=== PATIENT | male | born 1955 | race Caucasian/White ===

== ENCOUNTER 2020-01-27 22:36 | Outpatient (REF) | payer SELFPAY ==
[2020-01-28 07:04] LABS: Absolute Basophil Count 0.03 k/cumm (0.0-0.2); Absolute Eosinophil Count 0.17 k/cumm (0.0-0.7); Absolute Lymphocyte Count 2.81 k/cumm (1.2-3.4); Absolute Monocyte Count 0.53 k/cumm (0.11-0.7); Absolute Neutrophil Count 3.56 k/cumm (1.2-6.7); Basophils % 0.4; Eosinophils % 2.4; HCT 41.5 % (40.0-50.0); Lymphocytes % 39.6; Mean Corp. HGB Concentration 33.7 g/dL (32.0-36.0); Mean Corpuscular Hemoglobin 29.4 pg (27.0-33.0); Mean Corpuscular Volume 87.2 fL (80-95); Mean Platelet Volume 11.4 fL (8.0-11.0); Monocytes % 7.5; Neutrophils % 50.1; Platelet Count 194 x1000/uL (130-400); RBC 4.76 m/cumm (4.50-6.00); RBC Distribution Width 14.4 % (11.8-14.1)
[2020-01-28 07:28] LABS: Iron 123 ug/dL (65-175); Total Iron Binding Capacity 334 ug/dL (250-450); Transferrin Sat 37 % (20-55)
[2020-01-28 07:54] LABS: ALT 110 U/L (16-63); AST 90 U/L (15-37); Albumin 3.5 g/dL (3.4-5.0); Alkaline Phosphatase 127 U/L (46-116); Anion Gap 5.3 mmol/L (3-11); BUN 19 mg/dL (7-18); Bilirubin, Total 0.5 mg/dL (0.2-1.0); CO2 27.7 mmol/L (21.0-32.0); CREATININE 1.01 mg/dL (0.70-1.30); Calcium 9.1 mg/dL (8.5-10.1); Chloride 102 mmol/L (98-107); Ferritin 124 ng/mL (26-388); Glucose 103 mg/dL (74-106); Potassium 4.5 mmol/L (3.5-5.1); Sodium 135 mmol/L (136-145); TSH (W/Ref FT4) 2.94 uIU/mL (0.36-3.74); Vitamin B12 362 pg/mL (193-986)
[2020-01-28 14:31] LABS: Hemoglobin A1C 5.3 % (3.8-5.6)
== END 2020-01-27 22:56 ==
LOC: NCHCN 22:36
PROVIDERS: Visit Provider Nurse Practitioner Community Health
DX: B19.20 Unspecified viral hepatitis C without hepatic coma (principal); K62.5 Hemorrhage of anus and rectum; R63.4 Abnormal weight loss; R25.2 Cramp and spasm
CPT/HCPCS: 80053; 82607; 82728; 83036; 83540; 83550; 84443; 85025

== ENCOUNTER 2021-12-05 13:34 | Emergency (ER) | payer SELFPAY ==
--- NOTE | 2021-12-05 13:44 | ED.GENADUL_ITS ---
Discharge Plan Disposition Patient Disposition: HOME Condition: Stable Discharge Details Clinical Impression: Elevated blood pressure reading, Arthralgia Primary Care Provider: Unknown,Unknown ED Provider: Shaye Wilder Home Meds and New Rx's Prescriptions: New lisinopril 5 mg tablet 5 mg PO DAILY Qty: 30 0RF doxycycline hyclate 100 mg tablet 100 mg PO BID Qty: 48 0RF Discharge Instructions Additional Instructions: Please follow-up with your rehab care assistant establish care for PCP, talk to them about your concerns regarding Medicare I recommend you start the blood pressure medication, your blood pressure is really high and I recommend having it rechecked to the midline knee I have written you a prescription for doxycycline, your lab test have not returned, we will let you know regarding the results if they are positive Should you develop pain, shortness of breath, or any new or worsening complaints, my recommendation is that you present to the emergency room for reassessment Discharge Data Discharge Date/Time-TO BE ENTERED AT DEPARTURE: 12/05/21 16:27 Medical Decision Making Patient EKG and diagnostic labs do not show evidence of acute abnormality Patient is afebrile and nontoxic He is significantly hypertensive, this was checked on several episodes during patient's visit, patient did not have any evidence of hypertensive emergency and I do not believe it would benefit patient to give IV antihypertensives time, in fact I think the risk would outweigh the benefit -Care management list Troponin is negative, no evidence of hypertensive emergency, but patient will benefit from oral antihypertensive given significant hypertension with history and family and significant elevation in the emergency department I see no need for emergent intervention Care management referral for follow-up Lyme titer is pending, placed on 21-day course of dog cyclin given tick bite and Lyme's presenting symptoms, discussed risk benefit patient with a yogurt daily while on this medication He is aware that he needs very close outpatient follow-up and that he is at risk for stroke and other more ominous pathology HPI General Date/Time Provider Initiated Documentation: 12/05/21 13:44 . HPI Narrative: 66-year-old gentleman with history of hepatitis C presents with report of bilateral jaw pain for the past 3 weeks. Patient feels as though this is related to his chronic Lyme. He states he had a symptom numerous times in the past. He denies any chest pain or shortness of breath. He states his symptoms are exacerbated with chewing. He is very agitated regarding his care and feels as though people are not willing to assess him for his Lyme disease. Related Data Home Medications Medication Instructions Recorded Confirmed doxycycline hyclate 100 mg tablet 100 mg PO BID #48 tab 12/05/21 lisinopril 5 mg tablet 5 mg PO DAILY #30 tab 12/05/21 Previous Rx's Medication Instructions Recorded doxycycline hyclate 100 mg tablet 100 mg PO BID #48 tab 12/05/21 lisinopril 5 mg tablet 5 mg PO DAILY #30 tab 12/05/21 Allergies Allergy/AdvReac Type Severity Reaction Status Date / Time No Known Allergies Allergy Unverified 12/05/21 14:13 Review of Systems All systems reviewed & are unremarkable except as noted in HPI and below PFSH All Active Problems (Updated 12/05/21 @ 16:06 by NITA Gates) Elevated blood pressure reading (Acute) Arthralgia (Acute) Social History Smoking/Tobacco Use Status: Former Tobacco Use Smoking risk assessment performed?: Yes Alcohol Intake: never Drug use: Daily Substance use type: marijuana Do you feel safe at home: Yes Do you feel safe in your relationship?: Yes Exam Const General: cooperative, comfortable and no acute distress HENMT Other: mild jaw tenderness noted , uvula midline No trismus, no evidence of intraoral pathology Eyes Pupils: PERRL Neck Other: no carotid bruit Resp Effort & Inspection: normal respiratory effort Auscultation: clear to auscultation bilaterally Cardio Rate: regular rate Rhythm: regular rhythm Other: No murmur GI Inspection: normal to inspection Skin General skin exam: no rashes or lesions noted Neuro General: patient alert and patient oriented x3
[2021-12-05 13:50] VITALS: BP 200/120; PULSE 85; RESP 16; TEMP 37; O2SAT 97
--- NOTE | 2021-12-05 14:00 | RT.EKG_ITS ---
APPROVED REPORT Exam: Resting ECG Reason for Exam: chest pain Patient Location: E HR:94 bpm ECG Measurements Heart Rate 94 AXIS ND 174 P 65 QRSd 97 QRS 24 QT 366 T 41 QTc 458 Conclusion Sinus rhythm...normal P axis, V-rate 60- 99 Probable left atrial enlargement...P >50mS, <-0.10mV V1
--- NOTE | 2021-12-05 14:15 | DI.RAD_ITS ---
Exam(s) XR PORTABLE CHEST AP EXAM: XR PORTABLE CHEST AP CLINICAL HISTORY: jaw pain TECHNIQUE: 2D digital imaging was performed of the chest. One image was obtained. An AP view was ob tained. COMPARISON: No exams were available for comparison FINDINGS: MEDIASTINUM: Normal. HEART: Normal. PULMONARY VASCULATURE: Normal. LUNGS: Clear. PLEURAL SPACE: No pleural effusion or pneumothorax. BONE:Within normal limits for the patient's age. OTHER FINDINGS:Normal. IMPRESSION: No acute pulmonary findings. DATA REPOSITORY: RADIATION DOSE DELIVERED:
[2021-12-05 14:42] LABS: Abs Immature Grans 0.01 10^3/uL (0.0-0.06); Absolute Basophil Count 0.09 10^3/uL (0.0-0.2); Absolute Eosinophil Count 0.21 10^3/uL (0.0-0.7); Absolute Lymphocyte Count 4.61 10^3/uL (1.2-3.4); Absolute Monocyte Count 0.71 10^3/uL (0.1-0.8); Basophils % 0.9; Eosinophils % 2.2; HGB 15.2 g/dL (13.5-17.5); Immature Grans % 0.1; Lymphocytes % 47.9; MCH 27.8 pg (27.0-33.0); MCV 84.2 fL (80-95); MPV 9.7 fL (8.0-11.0); Monocytes % 7.4; Neutrophils % 41.5; Nucleated RBC 0 %; Platelet Count 212 10^3/uL (130-400); RBC 5.46 10^6/uL (4.36-5.78); RDW 13.2 % (11.8-14.1); WBC 9.63 10^3/uL (4.4-10.8)
[2021-12-05 14:49] LABS: ALT 27 U/L (16-63); AST 22 U/L (15-37); Albumin 4.6 g/dL (3.4-5.0); Alkaline Phosphatase 96 U/L (46-116); Anion Gap 9.6 mmol/L (3-11); BUN 15 mg/dL (7-18); Bilirubin, Total 0.6 mg/dL (0.2-1.0); CO2 26.4 mmol/L (21.0-32.0); CREATININE 1.1 mg/dL (0.70-1.30); Calcium 9.4 mg/dL (8.5-10.1); Chloride 101 mmol/L (98-107); Glucose 95 mg/dL (74-106); Magnesium 2.1 mg/dL (1.8-2.4); Potassium 3.6 mmol/L (3.5-5.1); Sodium 137 mmol/L (136-145); Total Protein 9.1 g/dL (6.4-8.2); Troponin I < 50 ng/L (<or=60)
--- NOTE | 2021-12-05 15:27 | NUR.NOTE ---
Nursing Note: Pt took off monitoring equipment but did allow this com writer to check BP, 205/127, pt states I dont have BP problems, it is the lyme disease, provider aware.
--- NOTE | 2021-12-05 15:36 | NUR.NOTE ---
Nursing Note: Referral given to Care Management to establish care/chronic lyme, routine follow up with new PCP. Barbara Sandra
[2021-12-06 11:56] LABS: Lyme Ab w Rflx to Lyme Confirm Positive (Negative)
[2021-12-07 07:51] LABS: Lyme IgG Ab Negative (Negative); Lyme IgM Ab Negative (Negative)
[2021-12-08 19:06] LABS: Anaplasma phagocytophilum Negative (Negative); B. miyamotoi PCR Negative (Negative); Babesia divergens/MO-1 Negative (Negative); Babesia duncani Negative (Negative); Babesia microti Negative (Negative); Ehrlichia chaffeensis Negative (Negative); Ehrlichia ewingii/canis Negative (Negative); Ehrlichia muris eauclairensis Negative (Negative)
== END 2021-12-05 16:27 | disposition home or self-care (01) ==
PROVIDERS: Emergency Provider Physician Assistant
DX: R03.0 Elevated blood-pressure reading, without diagnosis of hypertension (principal); R07.9 Chest pain, unspecified; R68.84 Jaw pain; A69.20 Lyme disease, unspecified
CPT/HCPCS: 80053; 86617; 87798; 93005; 99284; 71045; 83735; 84484; 85025; 86618; 93010; 99283